=== PATIENT | female | born 1970 | race Caucasian/White ===

== ENCOUNTER 2017-05-27 23:26 | Emergency (ER) | payer OTHER ==
[2017-05-27 23:59] VITALS: BP 155/97; PULSE 96; TEMP 98.1; BMI 32.3
[2017-05-28] MEDS ORDERED: METOCLOPRAMIDE HCL INJECTION 10 MG/2 ML VIAL ONE (00:36)
[2017-05-28] MEDS ORDERED: SODIUM CHLORIDE 1,000 ML IV ONE (00:36)
[2017-05-28] MEDS ORDERED: METOCLOPRAMIDE HCL INJECTION 10 MG/2 ML VIAL IVPUSH STA (00:36)
--- NOTE | 2017-05-28 00:39 | PDOC ---
History of Present Illness - General Chief Complaint: Headache Stated Complaint: HEADACHE/VOMITING Time Seen by Provider: 05/28/17 00:30 History Source: Patient - History of Present Illness Initial Comments: 05/28/17 04:01 46 year old female with nausea, vomiting and headache x 1 week,. denies fever/ chills, abdominal pain. patient was seen in the ED at [facility] with negative work up. Timing/Duration: reports: 1 week, increasing Severity: Yes: moderate Associated Symptoms: reports: nausea/vomiting Past History - Past Medical History Allergies/Adverse Reactions: Allergies Allergy/AdvReac Type Severity Reaction Status Date / Time No Known Allergies Allergy Verified 05/27/17 23:56 Home Medications: Ambulatory Orders Acetaminophen [Tylenol] 650 mg PO PRN 05/27/17 Butalb/Acetaminophen/Caffeine [Fioricet 50-300-40 mg Capsule] 1 each PO QID PRN #20 capsule 05/28/17 COPD: No Diabetes: Yes (no meds) - Suicide/Smoking/Psychosocial Hx Smoking History: Never smoked Review of Systems - Review of Systems Able to Perform ROS?: Yes Is the patient limited Swedish proficient: No Constitutional: No: Symptoms Reported, See HPI, Chills, Diaphoresis, Fever, Loss of Appetite, Malaise, Night Sweats, Weakness, Weight Stable, Unintentional Wgt. Loss, Unexplained wgt Loss, Other ABD/GI: Yes: Nausea, Vomiting Integumentary: No: Symptoms Reported, See HPI, Bruising, Change in Color, Change in Hair/Nails, Dryness, Erythema, Flushing, Lesions, Lumps, Pallor, Pruritus, Rash, Sweating, Other Neurological: Yes: Headache. No: Symptoms reported, See HPI, Numbness, Paresthesia, Pre-Existing Deficit, Seizure, Tingling, Tremors, Weakness, Unsteady Gait, Ataxia, Dizziness, Other *Physical Exam - Vital Signs Last Vital Signs Temp Pulse Resp BP Pulse Ox 98.1 F 96 H 26 H 155/97 98 05/27/17 23:57 05/27/17 23:57 05/27/17 23:57 05/27/17 23:57 05/27/17 23:57 - Physical Exam General Appearance: Yes: Appropriately Dressed Respiratory/Chest: positive: Lungs Clear, Normal Breath Sounds Gastrointestinal/Abdominal: positive: Normal Bowel Sounds, Soft. negative: Tender Extremity: positive: Normal Capillary Refill, Normal Inspection, Normal Range of Motion Integumentary: positive: Normal Color, Dry, Warm Neurologic: positive: reference librarian II-XII NML intact, Fully Oriented, Alert, Normal Mood/ Affect, Normal Response, Motor Strength 5/5 Heart Score/ECG Review - ECG Intrepretation Rhythm: Regular Rhythm Comment:: 05/28/17 06:56 NSR: 66bpm ED Treatment Course - LABORATORY CBC & Chemistry Diagram: 05/28/17 00:47 05/28/17 00:47 Progress Note - Progress Note Progress Note: A: Headache P: NS Jaylon lopez patient reports that she has a ibuprofen allergy. will differ toradol at this time. Medical Decision Making - Medical Decision Making 05/28/17 04:30 patient c/o headache and nausea. 05/28/17 04:33 will give IVF, decadron and fiorecet. CT sinuses pending 05/28/17 06:22 Patient reports feeling better. all instructions reviewed with [facility] scientific editor services , *DC/Admit/Observation/Transfer Diagnosis at time of Disposition: Headache Qualifiers: Headache type: tension-type Headache chronicity pattern: acute headache Intractability: intractable Qualified Code(s): G44.201 - Tension-type headache, unspecified, intractable - Discharge Dispostion Disposition: HOME - Prescriptions Prescriptions: Butalb/Acetaminophen/Caffeine [Fioricet 50-300-40 mg Capsule] 1 each PO QID PRN #20 capsule PRN Reason: Headache - Referrals - Patient Instructions Printed Discharge Instructions: Migraine Headaches (Alternative Therapy) Additional Instructions: take fiorecet as prescribed. follow up with your doctor as soon as possible. ' follow up with a neurologist as soon as possible. return to the ER for worsening headache, fever or worsening symptoms. - Post Discharge Activity Forms/Work/School Notes: Back to Work
--- NOTE | 2017-05-28 00:43 | PDOC ---
*Physical Exam - Vital Signs Last Vital Signs Temp Pulse Resp BP Pulse Ox 98.1 F 96 H 26 H 155/97 98 05/27/17 23:57 05/27/17 23:57 05/27/17 23:57 05/27/17 23:57 05/27/17 23:57 Medical Decision Making - Medical Decision Making 05/28/17 00:42 agree with care from [facility] [employer] PROGRAM ASSISTANT Dong
[2017-05-28 01:09] LABS: BASO % 0.3 % (0-2.0); EOS % 0.1 % (0-4.5); HEMATOCRIT 41.5 % (32.4-45.2); LYMPH % 8.6 % (8-40); MCH 30.5 pg (25.7-33.7); MCHC 33.8 g/dl (32.0-36.0); MEAN CELL VOLUME 90.2 fl (80-96); MEAN PLT VOLUME 10.8 fl (7.5-11.1); MONO % 3.4 % (3.8-10.2); NEUT % 87.6 % (42.8-82.8); PLATELET COUNT 191 K/MM3 (134-434); RBC 4.59 M/mm3 (3.60-5.2); RDW 12.9 % (11.6-15.6)
[2017-05-28 01:32] LABS: INR 1.11 (0.82-1.09); PROTHROMBIN TIME (PATIENT) 12.5 SEC (9.98-11.88)
[2017-05-28 01:34] LABS: ALBUMIN 4.4 g/dl (3.4-5.0); ANION GAP 14 (8-16); BLOOD UREA NITROGEN 11 mg/dL (7-18); CALCIUM 9.4 mg/dL (8.5-10.1); CHLORIDE 100 mmol/L (98-107); CO2 23 mmol/L (21-32); CREATININE 0.7 mg/dL (0.55-1.02); GLUCOSE,RANDOM 243 mg/dL (74-106); POTASSIUM 4.1 mmol/L (3.5-5.1); SGOT/AST 40 U/L (15-37); SGPT/ALT 52 U/L (12-78); SODIUM 137 mmol/L (136-145)
[2017-05-28 01:38] LABS: ALK PHOS 66 U/L (45-117); BILIRUBIN,TOTAL 0.4 mg/dL (0.2-1.0)
[2017-05-28 04:18] LABS: URINE APPEARANCE CLEAR; URINE BILIRUBIN NEGATIVE (<2.0 mg/dL); URINE BLOOD NEGATIVE (NEGATIVE); URINE COLOR COLORLESS; URINE GLUCOSE (UA) 2+ (NEGATIVE); URINE KETONE NEGATIVE (NEGATIVE); URINE LEUK ESTERASE NEGATIVE (NEGATIVE); URINE NITRITE NEGATIVE (NEGATIVE); URINE PROTEIN NEGATIVE (NEGATIVE); URINE UROBILINOGEN NEGATIVE mg/dL (0.2-1.0)
[2017-05-28 04:39] LABS: VENOUS PH 7.37 (7.32-7.42)
[2017-05-28 04:40] LABS: VENOUS PO2 38.6 mmHg (28-48)
[2017-05-28] MEDS ORDERED: ACETAMINOPHEN/CAFFEINE/BUTALBITAL 1 TAB PO ONE (04:46)
[2017-05-28] MEDS ORDERED: PROCHLORPERAZINE INJECTION 10 MG/2 ML VIAL IVPB ONE (04:51)
[2017-05-28] MEDS ORDERED: SODIUM CHLORIDE 1,000 ML IV SCH (05:00)
[2017-05-28] MEDS ORDERED: DEXAMETHASONE SOD PHOSPHATE 10 MG/1 ML VIAL IVPUSH ONE (05:13)
[2017-05-28] MEDS ORDERED: ACETAMINOPHEN/CAFFEINE/BUTALBITAL 1 TAB ONE (05:27)
[2017-05-28] MEDS ORDERED: DEXAMETHASONE SOD PHOSPHATE 10 MG/1 ML VIAL ONE (05:27)
[2017-05-28] MEDS ORDERED: PROCHLORPERAZINE INJECTION 10 MG/2 ML VIAL ONE (05:27)
--- NOTE | 2017-05-28 09:54 | EKG ---
Test Reason : Blood Pressure : / mmHG Vent. Rate : 066 BPM Atrial Rate : 066 BPM P-R Int : 138 ms QRS Dur : 100 ms QT Int : 428 ms P-R-T Axes : -08 024 006 degrees QTc Int : 448 ms NORMAL SINUS RHYTHM NORMAL ECG NO PREVIOUS ECGS AVAILABLE Confirmed by NINO WATSON MD ([id number]) on 05/28/2017 9:53:46 AM Referred By: Confirmed By:NINO WATSON MD
== END 2017-05-28 06:57 | disposition home or self-care (01) ==
LOC: JER 23:26
PROC: 3E0337Z Introduction of Electrolytic and Water Balance Substance into Peripheral Vein, Percutaneous Approach (ICD-10-PCS; principal; 2017-05-27)
PROC: 3E033GC Introduction of Other Therapeutic Substance into Peripheral Vein, Percutaneous Approach (ICD-10-PCS; 2017-05-27)
PROC: 3E033GC Introduction of Other Therapeutic Substance into Peripheral Vein, Percutaneous Approach (ICD-10-PCS; 2017-05-27)
PROC: 3E033NZ Introduction of Analgesics, Hypnotics, Sedatives into Peripheral Vein, Percutaneous Approach (ICD-10-PCS; 2017-05-27)
PROC: 3E0333Z Introduction of Anti-inflammatory into Peripheral Vein, Percutaneous Approach (ICD-10-PCS; 2017-05-27)
DX: G44.201 Tension-type headache, unspecified, intractable (principal)
CPT/HCPCS: 36415; 70450-TC; 70486-TC; 71045-TC-FY; 80053; 81003; 82550; 82803; 84484; 84703; 85025; 85610; 86850; 86900; 86901; 93005; 93010; 99282-25; J1100; J7030